=== PATIENT | male | born 1990 | race African-American/Black ===

== ENCOUNTER 2023-01-11 19:54 | Emergency (ER) | payer MEDICAID ==
[~2023-01-11] VITALS: Ht 188 cm; Wt 113.6 kg
[2023-01-11 19:59] VITALS: BP 167/98
[2023-01-11 20:41] LABS: BASOPHILS % (AUTO) 0.5 % (0-1); EOSINOPHILS # (AUTO) 0.1 X10'3 (0-0.9); EOSINOPHILS % (AUTO) 0.8 % (0-6); HEMATOCRIT 43.4 % (42.0-52.0); HEMOGLOBIN 14.4 g/dl (14.0-17.9); LYMPHOCYTES # (AUTO) 1.9 X10'3 (1.1-4.8); LYMPHOCYTES % (AUTO) 23.6 % (21-51); MEAN CORPUSCULAR HEMOGLOBIN 29.2 PG (27.0-31.0); MEAN CORPUSCULAR HGB CONC 33.2 g/dL (33.0-36.5); MEAN CORPUSCULAR VOLUME 87.9 FL (78-98); MEAN PLATELET VOLUME 7.2 FL (7.4-10.4); MONOCYTES # (AUTO) 0.5 X10'3 (0-0.9); MONOCYTES % (AUTO) 6.7 % (2-12); NEUTROPHILS # (AUTO) 5.4 X10'3 (1.8-7.7); NEUTROPHILS % (AUTO) 68.4 % (42-75); PLATELET COUNT 284 X10'3 (140-440); RED BLOOD COUNT 4.94 X10'6 (4.70-6.10); RED CELL DISTRIBUTION WIDTH 13.6 % (11.5-14.5); WHITE BLOOD COUNT 7.9 X10'3 (4.5-11.0)
[2023-01-11 20:55] LABS: ALANINE AMINOTRANSFERASE 27 U/L (12-78); ALBUMIN 4.1 G/DL (3.4-5.0); ALBUMIN/GLOBULIN RATIO 0.9 (1.1-1.5); ALKALINE PHOSPHATASE 60 IU/L (46-116); ANION GAP 9 (8-16); ASPARTATE AMINO TRANSFERASE 17 U/L (10-37); BILIRUBIN,TOTAL 0.3 MG/DL (0.1-1.0); BLOOD UREA NITROGEN 6 MG/DL (7-18); BUN/CREATININE RATIO 8.3 (5.4-32.0); CALCIUM 8.8 MG/DL (8.5-10.1); CHLORIDE 106 MMOL/L (99-107); CREATININE 0.72 MG/DL (0.60-1.10); ETHANOL 0.238 GM/DL (0.0-0.010); GLUCOSE 112 MG/DL (70-104); POTASSIUM 3.7 MMOL/L (3.5-5.1); SODIUM 144 MMOL/L (135-145); TOTAL CARBON DIOXIDE 29.1 MMOL/L (24-32); TOTAL PROTEIN 8.8 G/DL (6.4-8.2); eGFR > 90 ML/MIN
[2023-01-11] MEDS ORDERED: normal saline 1000ml 1,000 ML IV ONE ×2 (21:15)
== END 2023-01-11 22:18 | disposition home or self-care (01) ==
LOC: EEVIPCON 19:55 → ER 19:55
DX: F10.920 Alcohol use, unspecified with intoxication, uncomplicated (principal); R41.82 Altered mental status, unspecified; Z88.8 Allergy status to other drugs, medicaments and biological substances; Y90.9 Presence of alcohol in blood, level not specified
CPT/HCPCS: 36415; 70450; 80053; 80320; 85025; 93005; 99284; 99285

== ENCOUNTER 2024-01-31 15:26 | Emergency (ER) | payer MEDICAID ==
[~2024-01-31] VITALS: Ht 188 cm; Wt 113.6 kg
[2024-01-31 15:27] VITALS: BP 141/97; PULSE 126; RESP 16; TEMP 98.6; O2SAT 98
== END 2024-01-31 18:47 | disposition home or self-care (01) ==
LOC: ER 15:26
DX: F15.90 Other stimulant use, unspecified, uncomplicated (principal); Z91.041 Radiographic dye allergy status
CPT/HCPCS: 99281

== ENCOUNTER 2024-06-14 07:37 | Emergency (ER) | payer MEDICAID ==
[~2024-06-14] VITALS: Ht 188 cm; Wt 116.6 kg
[2024-06-14 08:03] VITALS: BP 160/103; PULSE 112; RESP 16; TEMP 98; O2SAT 98
== END 2024-06-14 08:04 | disposition home or self-care (01) ==
LOC: ER 07:38
DX: Z00.00 Encounter for general adult medical examination without abnormal findings (principal); F10.10 Alcohol abuse, uncomplicated; Z72.89 Other problems related to lifestyle; Z91.041 Radiographic dye allergy status; Y90.9 Presence of alcohol in blood, level not specified
CPT/HCPCS: 99281